=== PATIENT | female | born 1965 | race Two or more races ===

== ENCOUNTER 2024-11-24 21:48 | Inpatient (IN) | payer MEDICAID ==
[~2024-11-24] VITALS: Ht 162.6 cm; Wt 77.2 kg
[~2024-11-24 21:48] MED LIST: ACET-1304 PO; METF-372 PO
--- NOTE | 2024-11-24 22:41 | ED.PDOC ---
HPI Comments 59-year-old female, with a history of diabetes and hyperlipidemia, presents with complaint left-sided chest pain, that radiates to her left-neck and shoulder, and palpitations, today. Patient endorses on ongoing symptoms following unprovoked onset at 8:00 a.m., this morning. She reports no recent injuries, sick contact, significant history, or other relevant pertinent information at the time of initial contact. Patient denies having any shortness of breath, cough, nausea, vomiting, fever, or other associated symptoms or modifiers at this time. Chief Complaint: Chest Pain Time Seen by MD: 22:20 Primary Care Provider: VICENTE Reviewed Notes: Nurses Notes, Medications, Allergies Allergies: Coded Allergies: NO KNOWN ALLERGIES (Unverified , 04/27/23) Home Meds Active Scripts Acetaminophen (Tylenol Extra Strength) 500 Mg Tab, 500 MG PO Q6HPRN PRN, #20 TAB Prov:ERNA OSBORN MD 05/01/23 Reported Medications Metformin Hydrochloride (Metformin Hcl) 1,000 Mg Tab, 1 TAB PO BID 04/28/23 Information Source: Patient Mode of Arrival: Ambulatory Severity: Moderate Timing: Hours Duration: Since onset Prehospital treatment: None Past Medical History PAST MEDICAL HISTORY: DM, High Lipids Surgical History: Tonsillectomy BERRY PICKER History: Denies all BERRY PICKER Hx Family History Family History: Family hx of DM, Family hx of heart mendel Social History Smoker: Non-Smoker Alcohol: Denies ETOH Use Drugs: Denies Drug Use Lives In: Home Cardiovascular: reports: chest pain, palpitations Musculoskeletal: reports: neck pain (Left side), others (Left shoulder pain) All Other Systems: Reviewed and Negative (Negative unless otherwise stated abov e or in HPI) Physical Exam General Appearance: No Apparent Distress, Normal HEENT: Normal ENT Inspection, Pharynx Normal, TMs Normal Neck: Full Range of Motion, Non-Tender, Normal, Normal Inspection Respiratory: Chest Non-Tender, Lungs Clear, No Accessory Muscle Use, No Respiratory Distress, Normal Breath Sounds Cardiovascular: No Edema, No JVD, No Murmur, No Gallop, Normal Peripheral Pu lses, Tachycardia, Other (regular rhythm) Breast Exam: Deferred Gastrointestinal: No Organomegaly, Non Tender, No Pulsatile Mass, Normal Bowel Sounds, Soft Genitalia: Deferred Pelvic: Deferred Rectal: Deferred Extremities: No calf tenderness, Normal capillary refill, Normal inspection, Normal range of motion, Non-tender, No pedal edema Musculoskeletal : Location: Left Extremity Location: Chest Apperance: Normal, Tenderness (reproducible pain to left-pectoral muscle ) Neurologic: Alert, 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 Was a procedure done?: No CP Differential Dx Differential Diagnosis: Electrolyte Disorder, Sinus Tachycardia Differential Diagnosis: N/A Differential Diagnosis: Angina, Chest Wall Pain, Costochondritis, Esophageal reflux/spasm, Gastritis, Myocardial Infarction, Pericarditis X-Ray, Labs, Meds, VS Vital Signs Date Time Temp Pulse Resp B/P (MAP) Pulse Ox O2 Delivery O2 Flow Rate FiO2 11/24/24 22:55 113 11/24/24 21:55 126 11/24/24 21:52 98.0 126 15 155/98 (117) 94 Lab Test 11/24/24 22:58 11/24/24 21:59 Range/Units Troponin I High Sensitivity 43 *H 42 *H </=34 ng/L White Blood Count 9.1 4.4-10.8 10^3/uL Red Blood Count 5.12 4.0-5.20 10^6/uL Hemoglobin 14.1 12.2-16.2 g/dL Hematocrit 43.3 36.0-46.0 % Mean Corpuscular Volume 84.6 80.0-100.0 fL Mean Corpuscular Hemoglobin 27.6 L 28.0-32.0 pg Mean Corpuscular Hemoglobin Concent 32.6 32.0-36.0 g/dL Red Cell Distribution Width 14.3 11.8-14.3 % Platelet Count 339 140-450 10^3/uL Mean Platelet Volume 8.2 6.9-10.8 fL Neutrophils (%) (Auto) 49.0 37.0-80.0 % Lymphocytes (%) (Auto) 41.7 10.0-50.0 % Monocytes (%) (Auto) 6.5 0.0-12.0 % Eosinophils (%) (Auto) 2.1 0.0-7.0 % Basophils (%) (Auto) 0.7 0.0-2.0 % Neutrophils # (Auto) 4.5 1.6-8.6 10 ^3/uL Lymphocytes # (Auto) 3.8 0.4-5.4 10 ^3/uL Monocytes # (Auto) 0.6 0-1.3 10 ^3/uL Eosinophils # (Auto) 0.2 0-0.8 10 ^3/uL Basophils # (Auto) 0.1 0-0.2 10 ^3/uL Nucleated Red Blood Cells 0.1 % Sodium Level 138 136-145 mmol/L Potassium Level 3.6 3.5-5.1 mmol/L Chloride Level 102 98-107 mmol/L Carbon Dioxide Level 24 20-31 mmol/L Anion Gap 12 5-15 Blood Urea Nitrogen 17 9-23 mg/dL Creatinine 1.01 0.550-1.02 mg/dL Glomerular Filtration Rate Calc 64 >90 mL/min BUN/Creatinine Ratio 16.8 10.0-20.0 Serum Glucose 176 H 74-106 mg/dL Calcium Level 10.7 H 8.7-10.4 mg/dL Total Bilirubin 0.3 0.2-1.0 mg/dL Aspartate Amino Transferase (AST) 19 13-40 U/L Alanine Aminotransferase (ALT) 21 7-40 U/L Alkaline Phosphatase 101 46-116 U/L Total Protein 7.9 5.7-8.2 g/dL Albumin 4.7 3.2-4.8 g/dL X-Ray, Labs, Meds, VS Comment Patient will be admitted for chest pain rule out ACS Patient was elevated troponins trending up Recommend cardiology consult in the morning. Time of 1ST Reevaluation: 20:50 Reevaluation 1ST: Unchanged Patient Education/Counseling: Diagnosis, Treatment Family Education/Counseling: No Family Present Departure 1 Departure Time of Disposition: 23:39 Impression: Primary Impression: Angina pectoris Additional Impression: Elevated troponin Disposition: ADMITTED INPATIENT Condition: Stable Discharged With: Self Critical Care Note Critical Care Time?: No Stability Stability form required: No Heart Score Heart Score: Heart Score Response (Comments) Value History Highly Suspicious 2 EKG Normal 0 Age 45-64 1 Risk Factors No known risk factors 0 Troponin 1-2 x's Normal limit 1 Total 4 I personally scribed for ESTEFANIA JETT ([email or web address]) on 11/24/24 at 22:41. Electronically submitted by Kirk Mariee ([email or web address]). ESTEFANIA JETT [facility] Nov 24, 2024 22:41
--- NOTE | 2024-11-24 22:52 | DVH ---
CHEST RADIOGRAPH Indication: CP Technique: Single frontal view of the chest was obtained COMPARISON: XY CHEST PORTABLE on DOS: 04/27/23 FINDINGS: Lines and Tubes: None Lungs: Clear Pleura: No effusion. No pneumothorax. Cardiomediastinal contours: Unremarkable Bones: Unremarkable IMPRESSION: No abnormality.
[2024-11-24 23:06] LABS: Basophils # (auto) 0.1 10 ^3/uL (0-0.2); Basophils % (auto) 0.7 % (0.0-2.0); Eosinophils # (auto) 0.2 10 ^3/uL (0-0.8); Eosinophils % (auto) 2.1 % (0.0-7.0); Hematocrit 43.3 % (36.0-46.0); Hemoglobin 14.1 g/dL (12.2-16.2); Lymphocytes # (auto) 3.8 10 ^3/uL (0.4-5.4); Lymphocytes % (auto) 41.7 % (10.0-50.0); Mean Corpuscular Hemoglobin 27.6 pg (28.0-32.0); Mean Corpuscular Hgb Conc. 32.6 g/dL (32.0-36.0); Mean Corpuscular Volume 84.6 fL (80.0-100.0); Monocytes # (auto) 0.6 10 ^3/uL (0-1.3); Monocytes % (auto) 6.5 % (0.0-12.0); Neutrophils # (auto) 4.5 10 ^3/uL (1.6-8.6); Nucleated Red Blood Cells % 0.1 %; Platelet Count (auto) 339 10^3/uL (140-450); Red Blood Cells 5.12 10^6/uL (4.0-5.20); Red Cell Distribution Width 14.3 % (11.8-14.3); White Blood Cell 9.1 10^3/uL (4.4-10.8)
[2024-11-24 23:24] LABS: Alanine Aminotransferase 21 U/L (7-40); Alkaline Phosphatase 101 U/L (46-116); Anion Gap 12 (5-15); BUN/Creatinine Ratio 16.8 (10.0-20.0); Blood Urea Nitrogen 17 mg/dL (9-23); Carbon Dioxide 24 mmol/L (20-31); Chloride 102 mmol/L (98-107); Potassium 3.6 mmol/L (3.5-5.1); Sodium 138 mmol/L (136-145); Total Protein 7.9 g/dL (5.7-8.2)
[2024-11-24 23:25] LABS: Albumin 4.7 g/dL (3.2-4.8); Aspartate Aminotransferase 19 U/L (13-40)
[2024-11-24 23:28] LABS: Bilirubin, Total 0.3 mg/dL (0.2-1.0); Calcium 10.7 mg/dL (8.7-10.4); Glucose 176 mg/dL (74-106)
[2024-11-25] MEDS ORDERED: METOPROLOL TARTRATE 1MG/1ML-5ML VIAL IV PRN (00:30)
[2024-11-25] MEDS ORDERED: ONDANSETRON HCL 4 MG/2 ML VIAL IV PRN (00:30)
[2024-11-25] MEDS ORDERED: NITROGLYCERIN 0.4 MG SL TAB SL PRN (00:30)
[2024-11-25] MEDS ORDERED: DEXTROSE (50%) 50ML SYRG IV PRN (00:30)
[2024-11-25] MEDS ORDERED: MORPHINE SULFATE INJ 2 MG/ml SYRG IV PRN ×2 (00:30)
[2024-11-25] MEDS ORDERED: HYDROcodone-ACET 5/325MG TAB PO PRN (00:30)
[2024-11-25] MEDS ORDERED: LORazepam 0.5 MG TAB PO PRN (00:30)
[2024-11-25 00:54] LABS: Urine Bacteria None Seen /hpf (None Seen)
--- NOTE | 2024-11-25 01:02 | ECG ---
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
--- NOTE | 2024-11-25 01:02 | ECG ---
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
[2024-11-25 01:11] LABS: Urine Blood Negative /uL (Negative); Urine Clarity Clear (Clear); Urine Color Light-Yellow (Yellow); Urine Mucus FEW (None Seen); Urine Protein, UAD 1+ (Negative); Urine Specific Gravity 1.015 (1.001-1.035); Urine Squamous Epithelial Cell FEW /hpf (<5); Urine Urobilinogen Normal (Negative); Urine WBC 2 /HPF (0-5); Urine pH 5.5 (5.0-9.0)
[2024-11-25 01:34] LABS: Amphetamine Screen, Urine Neg (NEGATIVE); Barbiturate Scree,Urine Neg (NEGATIVE); Benzodiazephine Screen, Urine Neg (NEGATIVE); Cannabinoid Screen, Urine Neg (NEGATIVE); Cocaine Screen, Urine Neg (NEGATIVE); Opiate Scree,Urine Neg (NEGATIVE); Phencyclidine Screen, Urine Neg (NEGATIVE)
--- NOTE | 2024-11-25 02:55 | DVHHP2 ---
CAMI HARRIS LIBRARY SCIENCE INSTRUCTOR 11/25/24 0255: History of Present Illness Reason for Visit: Chest pain with shortness of breath History of Present Illness 59-year-old female with past medical history of DM presents with complaints of chest pain, palpitations, shortness for breath x1 day. Patient also endorses chest pain radiating to her back. On arrival to the emergency department patient was found to have sinus tachycardia 126. Troponin is also mildly el evated . This time patient denies any fevers, chills, dizziness, nausea, vomiting, diarrhea, leg swelling Endocrine: Diabetes Smoke: No ALCOHOL: none Drugs: None Lives: with Family Review of Systems Constitutional: No: Fever, Chills, Sweats, Weakness, Malaise, Other Eyes: No: Pain, Vision change, Conjunctivae inflammation, Eyelid inflammation, Other, Redness ENT: No: Ear pain, Ear discharge, Nose pain, Nose discharge, Nose congestion, Mouth pain, Mouth swelling, Throat pain, Throat swelling, Other Respiratory: Shortness of breath; No: Cough, Dry, SOB with excertion, Wheezing, Hemoptysis, Pleuritic Pain, Sputum, Wheezing, Other Cardiovascular: Chest Pain, Palpitations; No: Orthopnea, Paroxysmal Noc. Dyspnea, Edema, Lt Headedness, Other Gastrointestinal: No: Nausea, Vomiting, Abdominal Pain, Diarrhea, Constipation, Melena, Hematochezia, Other Genitourinary: No Dysuria, No Frequency, No Incontinence, No Hematuria, No Retention, No Other Musculoskeletal: No: other, neck pain, shoulder pain, arm pain, back pain, hand pain, leg pain, foot pain Skin: No: Rash, Lesions, Jaundice, Bruising, Other Neurological: No: Weakness, Numbness, Incoordination, Change in speech, Confusion, Seizures, Other Allergies: Coded Allergies: NO KNOWN ALLERGIES (Unverified , 04/27/23) Medications Current Medications Medications Dose Ordered Sig/Becky Route Start Time Stop Time Status Last Admin Dose Admin Acetaminophen 650 mg Q6HP PRN PO 11/25/24 00:30 Acetaminophen/ Hydrocodone Bitart 1 tab Q4HP PRN PO 11/25/24 00:30 Ondansetron HCl 4 mg Q4HP PRN IV 11/25/24 00:30 Morphine Sulfate 2 mg Q4HPRN PRN IV 11/25/24 00:30 Enoxaparin Sodium 40 mg DAILY SC 11/25/24 10:00 Nitroglycerin 0.4 mg Q5MINP PRN SL 11/25/24 00:30 Morphine Sulfate 2 mg Q30M PRN IV 11/25/24 00:30 Diagnostic Test (Pha) 1 strip ACHS 11/25/24 07:00 Insulin Human Regular ACHS SC 11/25/24 07:00 Dextrose 50 ml UD PRN IV 11/25/24 00:30 Lorazepam 0.5 mg BIDP PRN PO 11/25/24 00:30 Aspirin 81 mg DAILY PO 11/25/24 10:00 Metoprolol Tartrate 2.5 mg Q4HPRN PRN IV 11/25/24 00:30 Exam Vital Signs Vital Signs Date Time Temp Pulse Resp B/P (MAP) Pulse Ox O2 Delivery O2 Flow Rate FiO2 11/24/24 22:55 113 11/24/24 21:52 98.0 15 155/98 (117) 94 General Appearance: Alert, Oriented X3, Cooperative, mild distress HEENT: Atraumatic, PERRLA, EOMI Respiratory: Clear to auscultation, Normal air movement Cardiovascular: Normal S1, Normal S2, Other (Tachycardia) Abdominal: Normal bowel sounds, Soft, No tenderness Extremities: No clubbing, No cyanosis, No edema Skin: No rashes, No breakdown Neuro: Normal gait, Normal speech, Strength at 5/5 X4 ext Psych/Mental Status: Mental status NL, Mood NL Labs/Xrays Labs Test 11/25/24 00:48 11/25/24 00:40 11/24/24 21:59 Range/Units Troponin I High Sensitivity 42 *H </=34 ng/L Urine Color Light-yellow Yellow Urine Clarity Clear Clear Urine pH 5.5 5.0-9.0 Urine Specific Wilson 1.015 1.001-1.035 Urine Protein 1+ H Negative Urine Ketones Negative Negative Urine Blood Negative Negative /uL Urine Nitrite Negative Negative Urine Bilirubin Negative Negative Urine Urobilinogen Normal Negative mg/dL Urine Leukocyte Esterase Negative Negative /uL Urine RBC <1 0 - 4 /hpf Urine Microscopic WBC 2 0-5 /HPF Urine Squamous Epithelial Cells Few <5 /hpf Urine Bacteria None seen None Seen /hpf Urine Mucus Few None Seen Urine Glucose Trace Normal mg/dL Urine Opiates Screen Neg NEGATIVE Urine Fentanyl Screen Neg NEGATIVE Urine Barbiturates Screen Neg NEGATIVE Urine Phencyclidine Screen Neg NEGATIVE Urine Amphetamines Screen Neg NEGATIVE Urine Benzodiazepines Screen Neg NEGATIVE Urine Cocaine Screen Neg NEGATIVE Urine Cannabinoids Screen Neg NEGATIVE White Blood Count 9.1 4.4-10.8 10^3/uL Red Blood Count 5.12 4.0-5.20 10^6/uL Hemoglobin 14.1 12.2-16.2 g/dL Hematocrit 43.3 36.0-46.0 % Mean Corpuscular Volume 84.6 80.0-100.0 fL Mean Corpuscular Hemoglobin 27.6 L 28.0-32.0 pg Mean Corpuscular Hemoglobin Concent 32.6 32.0-36.0 g/dL Red Cell Distribution Width 14.3 11.8-14.3 % Platelet Count 339 140-450 10^3/uL Mean Platelet Volume 8.2 6.9-10.8 fL Neutrophils (%) (Auto) 49.0 37.0-80.0 % Lymphocytes (%) (Auto) 41.7 10.0-50.0 % Monocytes (%) (Auto) 6.5 0.0-12.0 % Eosinophils (%) (Auto) 2.1 0.0-7.0 % Basophils (%) (Auto) 0.7 0.0-2.0 % Neutrophils # (Auto) 4.5 1.6-8.6 10 ^3/uL Lymphocytes # (Auto) 3.8 0.4-5.4 10 ^3/uL Monocytes # (Auto) 0.6 0-1.3 10 ^3/uL Eosinophils # (Auto) 0.2 0-0.8 10 ^3/uL Basophils # (Auto) 0.1 0-0.2 10 ^3/uL Nucleated Red Blood Cells 0.1 % D-Dimer, Quantitative 0.37 0.0-0.49 mg/L FEU Sodium Level 138 136-145 mmol/L Potassium Level 3.6 3.5-5.1 mmol/L Chloride Level 102 98-107 mmol/L Carbon Dioxide Level 24 20-31 mmol/L Anion Gap 12 5-15 Blood Urea Nitrogen 17 9-23 mg/dL Creatinine 1.01 0.550-1.02 mg/dL Glomerular Filtration Rate Calc 64 >90 mL/min BUN/Creatinine Ratio 16.8 10.0-20.0 Serum Glucose 176 H 74-106 mg/dL Calcium Level 10.7 H 8.7-10.4 mg/dL Total Bilirubin 0.3 0.2-1.0 mg/dL Aspartate Amino Transferase (AST) 19 13-40 U/L Alanine Aminotransferase (ALT) 21 7-40 U/L Alkaline Phosphatase 101 46-116 U/L Total Protein 7.9 5.7-8.2 g/dL Albumin 4.7 3.2-4.8 g/dL Assessment/Plan Assessment/Plan Elevated troponin Sinus tachycardia DM with elevated blood glucose Plan Admit to telemetry Cardiology consult. Echocardiogram. ACS protocol: beta kiarra, ASA, statin. Blood glucose check ACHS with regular insulin sliding scale coverage ADA / cardiac diet GI ppx protonix/ DVT ppx Lovenox Plan discussed with: Patient My Orders Orders - CAMI HARRIS NP Procedure Category Date Status Time Admit ADMIT 11/25/24 Transmitted 00:19 Code Status CODE 11/25/24 Transmitted 00:19 Vital Signs TRAE 11/25/24 In Process 00:19 Review Orders With TRAE 11/25/24 In Process Adm. 00:19 Encourage Activity As TRAE 11/25/24 In Process Tolerate 00:19 Consistent DIET 11/25/24 Transmitted Carb(Ccho)Diabetes Breakfast Oxygen By Face Mask RT 11/25/24 Transmitted 00:19 Acetaminophen Tablet PHA 11/25/24 In Process (Tylenol Tablet) 00:30 Notify Of Changes TRAE 11/25/24 In Process From Base 00:19 Advance Directive TRAE 11/25/24 In Process 00:19 Echo 2d Mode Cardiac US 11/25/24 Logged DOP 00:19 Basic Metabolic Panel LAB 11/25/24 Logged 05:00 Basic Metabolic Panel LAB 11/26/24 Verified 05:00 Basic Metabolic Panel LAB 11/27/24 Verified 05:00 Basic Metabolic Panel LAB 11/28/24 Verified 05:00 Complete Blood Count LAB 11/25/24 Logged 05:00 Complete Blood Count LAB 11/26/24 Verified 05:00 Complete Blood Count LAB 11/27/24 Verified 05:00 Complete Blood Count LAB 11/28/24 Verified 05:00 Complete Blood Count LAB 11/29/24 Verified 05:00 Patient Condition ORDERS 11/25/24 Transmitted 00:19 Allergies TRAE 11/25/24 In Process 00:19 Hydrocodone-Acet PHA 11/25/24 In Process 5/325mg Tab ([place] 00:30 Ondansetron Hcl PHA 11/25/24 In Process (Zofran) 00:30 Morphine Sulfate PHA 11/25/24 In Process Injection 00:30 Enoxaparin Sodium PHA 11/25/24 In Process (Lovenox) 10:00 Sequential TRAE 11/25/24 In Process Compression Device Nitroglycerin PHA 11/25/24 In Process Sublingual (Ntrostat 00:30 Morphine Sulfate PHA 11/25/24 In Process Injection 00:30 Stat Ekg For Chest TRAE 11/25/24 In Process Pain 00:19 Notify Md Of Changes TRAE 11/25/24 In Process From Base 00:19 Lie Detector Operator For TRAE 11/25/24 In Process 24 Hours 00:19 Emergency Dysrhythmia TRAE 11/25/24 In Process Protocol 00:19 Rhythm Strips Once TRAE 11/25/24 In Process Every Shift 00:19 Oxygen By Nasal RT 11/25/24 Transmitted Cannula 00:19 Glucose Blood PHA 11/25/24 In Process (Accu-Chek Comfort 07:00 Insulin R (Human) PHA 11/25/24 In Process (Insulin R) 07:00 Dextrose 50% Syringe PHA 11/25/24 In Process 00:30 Lorazepam Tablet PHA 11/25/24 In Process (Ativan Tablet) 00:30 * Cardiology Consult CONS 11/25/24 Transmitted 00:19 Troponin-I Hs LAB 11/25/24 Logged 04:00 Troponin-I Hs LAB 11/25/24 Logged 10:00 Aspirin Tablet PHA 11/25/24 In Process 10:00 Metoprolol Inj PHA 11/25/24 In Process (Lopressor) 00:30 Thyroid Stimulating LAB 11/25/24 Logged Hormone 04:00 Free T4 (Free LAB 11/25/24 Logged Thyroxine) 04:00 Date of Service: Nov 25, 2024 Billing Provider: JANUARY ASHFORD MD Common Visit Codes: NOT BILLABLE JANUARY ASHFORD MD 11/25/24 1734: Review of Systems Allergies: Coded Allergies: NO KNOWN ALLERGIES (Unverified , 04/27/23) Additional Comments Additional Comments Additional Comments 59-year-old female with a known history of diabetes mellitus type 2, currently on metformin, presented to the hospital with chest pain and shortness of breaths found to have 1. Chest pain with elevated troponin rule out acute SC 2. Diabetes mellitus type 2 3. Sinus tachycardia -2D echo, cardiology consultation, stress test CAMI HARRIS NP Nov 25, 2024 02:55 JANUARY ASHFORD MD Nov 25, 2024 17:34
[2024-11-25] MEDS: ACETAMINOPHEN 325 MG TAB PO PRN (04:18)
[2024-11-25 04:49] LABS: Basophils # (auto) 0.1 10 ^3/uL (0-0.2); Basophils % (auto) 0.9 % (0.0-2.0); Eosinophils # (auto) 0.1 10 ^3/uL (0-0.8); Eosinophils % (auto) 2.1 % (0.0-7.0); Hematocrit 39.2 % (36.0-46.0); Lymphocytes # (auto) 2.8 10 ^3/uL (0.4-5.4); Mean Corpuscular Hemoglobin 27.9 pg (28.0-32.0); Mean Corpuscular Hgb Conc. 33.2 g/dL (32.0-36.0); Mean Corpuscular Volume 84.2 fL (80.0-100.0); Monocytes # (auto) 0.4 10 ^3/uL (0-1.3); Neutrophils # (auto) 3.3 10 ^3/uL (1.6-8.6); Nucleated Red Blood Cells % 0.1 %; Platelet Count (auto) 305 10^3/uL (140-450); Red Blood Cells 4.65 10^6/uL (4.0-5.20); Red Cell Distribution Width 14.5 % (11.8-14.3); White Blood Cell 6.6 10^3/uL (4.4-10.8)
[2024-11-25 04:58] LABS: Chloride 105 mmol/L (98-107); Potassium 3.7 mmol/L (3.5-5.1); Sodium 139 mmol/L (136-145)
[2024-11-25 04:59] LABS: Anion Gap 10 (5-15); Calcium 10.2 mg/dL (8.7-10.4); Carbon Dioxide 24 mmol/L (20-31)
[2024-11-25 05:04] LABS: Blood Urea Nitrogen 17 mg/dL (9-23)
[2024-11-25 05:06] LABS: Glucose 155 mg/dL (74-106)
[2024-11-25] MEDS: ASPirin 81 mg TAB PO SCH (07:16)
[2024-11-25] MEDS: ACCU-CHEK COMFORT CURVE STRIP VI SCH (07:17)
[2024-11-25] MEDS: InsuLIN REG 1unit/0.01ml Soln (100units/ml) SC SCH (07:17)
[2024-11-25] MEDS: ENOXAPARIN SOD 40 MG/0.4 ML SYRINGE SC SCH (07:17)
[2024-11-25 07:20] VITALS: PULSE 84; RESP 16; O2SAT 95
[2024-11-25 10:27] VITALS: BP 129/84; PULSE 98; RESP 16; TEMP 98.7; O2SAT 97
--- NOTE | 2024-11-25 14:23 | DVHINCON2 ---
[facility] 11/25/24 1423: Date Seen: Nov 25, 2024 Referring Physician ESTHER Hudson Reason for Consultation Chest pain History of Present Illness This is a 59-year-old female who presented to the emergency room with a chief complaint of chest pain on 11/24/2024. Describes her chest pain as left-sided, non provoked, intermittent, radiating to her left arm and neck area, pressure- like, associated with palpitations and some dizziness. Per patient, she took an antacid with no relief of symptoms. She underwent multiple 12 lead electrocardiogram revealing a sinus tachycardia rhythm without evident ST segment changes. Serial troponin levels have remained flat in the 40s ng/L. Per patient, she had experienced similar episodes in the past whenever she has a panic attack this time seems to be worse than normal. Significant medical history includes udi-yhfmhck-gkenrwznd diabetes mellitus and anxiety. Past Medical History Past medical history reviewed. No other significant than mentioned above. Past Surgical History Cholecystectomy Family History: Diabetes mellitus G8 MOTHER, G8 FATHER, Family History Family history reviewed. Significant for father with TIA. Social History Denies the use of illicit drugs, alcohol, or tobacco use. Allergies: Coded Allergies: NO KNOWN ALLERGIES (Unverified , 04/27/23) Home Meds Active Scripts Acetaminophen (Tylenol Extra Strength) 500 Mg Tab, 500 MG PO Q6HPRN PRN, #20 TAB Prov:ERNA OSBORN MD 05/01/23 Reported Medications Metformin Hydrochloride (Metformin Hcl) 1,000 Mg Tab, 1 TAB PO BID 04/28/23 Home Meds Home medications reviewed. Current Medications Current Medications Medications (Trade) Dose Ordered Sig/Becky Route PRN Reason Start Time Stop Time Status Last Admin Acetaminophen (Tylenol Tablet) 650 mg Q6HP PRN PO PAIN SCALE 1-3 OR TEMP>100.4 11/25/24 00:30 11/25/24 04:18 Acetaminophen/ Hydrocodone Bitart (Idamay 5/325MG Tab) 1 tab Q4HP PRN PO MODERATE PAIN (4-6 PAIN SCALE) 11/25/24 00:30 Ondansetron HCl (Zofran) 4 mg Q4HP PRN IV NAUSEA / VOMITING 11/25/24 00:30 Morphine Sulfate 2 mg Q4HPRN PRN IV SEVERE PAIN (7-10 PAIN SCALE) 11/25/24 00:30 Enoxaparin Sodium (Lovenox) 40 mg DAILY SC 11/25/24 10:00 11/25/24 07:17 Nitroglycerin (Ntrostat Sublingual) 0.4 mg Q5MINP PRN SL FOR CHEST PAIN 11/25/24 00:30 Morphine Sulfate 2 mg Q30M PRN IV FOR CHEST PAIN 11/25/24 00:30 Diagnostic Test (Pha) (Accu-Chek Comfort Curve T) 1 strip ACHS 11/25/24 07:00 11/25/24 11:42 Insulin Human Regular (InsuLIN R) ACHS SC 11/25/24 07:00 11/25/24 11:48 Dextrose 50 ml UD PRN IV Blood Sugar LESS THAN 60 11/25/24 00:30 Lorazepam (Ativan Tablet) 0.5 mg BIDP PRN PO anxiety 11/25/24 00:30 Aspirin 81 mg DAILY PO 11/25/24 10:00 11/25/24 07:16 Metoprolol Tartrate (Lopressor) 2.5 mg Q4HPRN PRN IV HEART RATE GREATER THAN 140 11/25/24 00:30 Review of Systems Constitutional: No symptom reported Ears, Nose, & Throat: No symptom reported Eyes: No symptom reported Neurological: Dizziness Pulmonary/Respiratory: No symptom reported Cardiovascular: Chest pain, palpitations Gastrointestinal: No symptom reported Genitourinary: No symptom reported Musculoskeletal: No symptom reported Skin: No symptom reported Psychiatric: No symptom reported Endocrine: No symptom reported Hemotologic/Lymphatic: No symptom reported Vital Signs Vital Signs Date Time Temp Pulse Resp B/P (MAP) Pulse Ox O2 Delivery O2 Flow Rate FiO2 11/25/24 10:27 98.7 98 16 129/84 (99) 97 98.7 11/25/24 07:20 Room Air* 0 21 Physical Exam General Appearance: Cooperative. Well developed. Well nourished. In no acute distress Head Exam: Normal inspection Neck Exam: Normal inspection. Non-tender. Normal alignment Pulmonary/Respiratory: Chest non-tender. Clear bilateral breath sounds Cardiovascular/Chest: Regular rate and rhythm. S1, S2. NSR. No murmurs. No JVD. Peripheral Pulses: 2+ Radial (R). 2+ Radial (L). 2+ Pedal (R). 2+ Pedal (L) Abdominal Exam: Normal bowel sounds. Soft. Nontender. No hepatospenomegaly. No masses Ankle Exam: Negative ankle edema Lower extremities: Negative lower extremity edema Neuro/Mental Status: A&O x4. Coherent Thoughts/Psych: Normal thought pattern. Mild anxiety present Appearance: In no acute distress Skin Exam: Normal inspection. Normal color. Warm. Dry Labs/Diagnostic Data Labs Test 11/25/24 11:41 11/25/24 10:00 11/25/24 04:38 11/25/24 00:40 Range/Units POC Glucose 188 H 70-106 mg/dl Troponin I High Sensitivity 42 *H </=34 ng/L White Blood Count 6.6 # 4.4-10.8 10^3/uL Red Blood Count 4.65 4.0-5.20 10^6/uL Hemoglobin 13.0 12.2-16.2 g/dL Hematocrit 39.2 36.0-46.0 % Mean Corpuscular Volume 84.2 80.0-100.0 fL Mean Corpuscular Hemoglobin 27.9 L 28.0-32.0 pg Mean Corpuscular Hemoglobin Concent 33.2 32.0-36.0 g/dL Red Cell Distribution Width 14.5 H 11.8-14.3 % Platelet Count 305 140-450 10^3/uL Mean Platelet Volume 7.5 6.9-10.8 fL Neutrophils (%) (Auto) 49.0 37.0-80.0 % Lymphocytes (%) (Auto) 42.0 10.0-50.0 % Monocytes (%) (Auto) 6.0 0.0-12.0 % Eosinophils (%) (Auto) 2.1 0.0-7.0 % Basophils (%) (Auto) 0.9 0.0-2.0 % Neutrophils # (Auto) 3.3 1.6-8.6 10 ^3/uL Lymphocytes # (Auto) 2.8 0.4-5.4 10 ^3/uL Monocytes # (Auto) 0.4 0-1.3 10 ^3/uL Eosinophils # (Auto) 0.1 0-0.8 10 ^3/uL Basophils # (Auto) 0.1 0-0.2 10 ^3/uL Nucleated Red Blood Cells 0.1 % Sodium Level 139 136-145 mmol/L Potassium Level 3.7 3.5-5.1 mmol/L Chloride Level 105 98-107 mmol/L Carbon Dioxide Level 24 20-31 mmol/L Anion Gap 10 5-15 Blood Urea Nitrogen 17 9-23 mg/dL Creatinine 0.85 0.550-1.02 mg/dL Glomerular Filtration Rate Calc 79 >90 mL/min BUN/Creatinine Ratio 20.0 10.0-20.0 Serum Glucose 155 H 74-106 mg/dL Calcium Level 10.2 8.7-10.4 mg/dL Thyroid Stimulating Hormone (TSH) 3.64 0.55-4.78 uIU/mL Free Thyroxine (T4) Calculated 0.97 0.89-1.76 ng/dL Urine Color Light-yellow Yellow Urine Clarity Clear Clear Urine pH 5.5 5.0-9.0 Urine Specific [place] 1.015 1.001-1.035 Urine Protein 1+ H Negative Urine Ketones Negative Negative Urine Blood Negative Negative /uL Urine Nitrite Negative Negative Urine Bilirubin Negative Negative Urine Urobilinogen Normal Negative mg/dL Urine Leukocyte Esterase Negative Negative /uL Urine RBC <1 0 - 4 /hpf Urine Microscopic WBC 2 0-5 /HPF Urine Squamous Epithelial Cells Few <5 /hpf Urine Bacteria None seen None Seen /hpf Urine Mucus Few None Seen Urine Glucose Trace Normal mg/dL Urine Opiates Screen Neg NEGATIVE Urine Fentanyl Screen Neg NEGATIVE Urine Barbiturates Screen Neg NEGATIVE Urine Phencyclidine Screen Neg NEGATIVE Urine Amphetamines Screen Neg NEGATIVE Urine Benzodiazepines Screen Neg NEGATIVE Urine Cocaine Screen Neg NEGATIVE Urine Cannabinoids Screen Neg NEGATIVE Test 11/24/24 21:59 Range/Units D-Dimer, Quantitative 0.37 0.0-0.49 mg/L FEU Total Bilirubin 0.3 0.2-1.0 mg/dL Aspartate Amino Transferase (AST) 19 13-40 U/L Alanine Aminotransferase (ALT) 21 7-40 U/L Alkaline Phosphatase 101 46-116 U/L Total Protein 7.9 5.7-8.2 g/dL Albumin 4.7 3.2-4.8 g/dL Assessment Non ST-elevation myocardial infarction Chest pain rule out coronary artery disease Rule out structural heart disease including MVP Gze-urpwyde-ofrppcduc diabetes mellitus Anxiety with a hx of panic attacks Negative d-dimer level Plan/Recommendation (Dr. Kam) Case discussed and patient examined at bedside by Dr. Kam. The patient with chest pain, risk factors, and elevated troponin levels will undergo a coronary angiogram with cardiac catheterization at first available. Risk and benefits of the procedure were discussed with the patient and at bedside. All questions answered. In the meantime, obtain a transthoracic echocardiogram to rule out structural heart disease. Continue single-antiplatelet therapy. Monitor ECG changes closely and notify accordingly. Continue chest pain protocol and therapeutic Lovenox, hold day of procedure. Lipid panel, HgbA1C, and Mg levels pending at this time. Thank you for allowing us to participate in this patient's care. Please call if you have any questions or concerns. This medical document was created using an electronic medical record system with voice recognition software and computerized dictation system. Although this document has been carefully reviewed, there might still be some phonetic and typographical errors. Occasional wrong-word or ``sound-alike substitutions may have occurred due to the inherent limitations of voice recognition software. These areas are purely typographical due to imperfections of the software programs and do not reflect any compromise in the patient's medical care. Pl ease read the chart carefully and recognize, using context, where these substitutions have occurred. Plan discussed with: Patient, Other NYHA Physical activity limitations: NA Date of Service: Nov 25, 2024 Billing Provider: [facility] Cardiology Common Codes: 71489-EUDMOOW INP/OBS CARE (High) AMPARO KAM MD 11/26/24 0529: Family History: Diabetes mellitus G8 MOTHER, G8 FATHER, Allergies: Coded Allergies: NO KNOWN ALLERGIES (Unverified , 04/27/23) Home Meds Active Scripts Acetaminophen (Tylenol Extra Strength) 500 Mg Tab, 500 MG PO Q6HPRN PRN, #20 TAB Prov:ERNA OSBORN MD 05/01/23 Reported Medications Metformin Hydrochloride (Metformin Hcl) 1,000 Mg Tab, 1 TAB PO BID 04/28/23 Plan/Recommendation 59 year-old female, with a moderately controlled diabetes and very remote history of panic attacks no episodes in the past two years. Presenting with two episodes of lightheadedness and discomfort, generalized, followed by distinct chest pressure associated with left arm numbness with radiation to the jaw and heart pounding. she denies a history of experiencing this previously. EKG with nonspecific changes, troponin elevated, but not dynamic. D dimer negative. Tachycardia at rest. no dehydration. I discussed with the patient and her family members the atypical presentation, her risk factors for CAD, including diabetes and dyslipidemia she would prefer a conclusive answer and she is on the lower risk for angiogram related complications. I have discussed this case with the paper bundler who will accept the patient for left heart catheterization tomorrow. Echocardiogram. high dose statin aspirin lovenox will treat as ACS: Unstable Angina/NSTEMI further recommendations per clinical progression Plan discussed with: Patient, Spouse Date of Service: Nov 25, 2024 Billing Provider: AMPARO KAM MD Cardiology Common Codes: 80680-XUBVRQI INP/OBS CARE (High) [facility] Nov 25, 2024 14:23 AMPARO KAM MD Nov 26, 2024 05:29
[2024-11-25 14:31] LABS: Magnesium 1.8 mg/dL (1.6-2.6)
[2024-11-25] MEDS ORDERED: ENOXAPARIN SOD 80 MG/0.8ML SYRINGE SC SCH ×2 (22:00)
--- NOTE | 2024-11-26 12:18 | DVHSR ---
APPROVED REPORT EXAM: Two-dimensional and M-mode echocardiogram with Doppler and color Doppler. Blood Pressure: 111/70 mmHg INDICATION Elevated Trops RISK FACTORS Height: 64, Weight: 170 DIMENSIONS LVDd4.3 (3.8-5.7cm)LA (2D)3.4 (1.9-4.0cm)Aortic Root2.9 (2.0-3.7cm) LVDs3.4 (2.5-4.0cm)LA (MM) (1.9-4.0cm)Aortic Cusp Exc1.6 (1.5-2.0cm) EF (%) 43.0 (55-70%)Rt. Atrium3.6 (1.9-4.0cm)Asc. Aorta cm IVSd1.0 (0.7-1.1cm)RV (D) (1.8-2.4cm) PWd1.1 (0.7-1.1cm) Mitral Valve MitralMitral Stenosis E wave1.04m/sMV Mean GR.2mmHg A wavem/sMV Peak GR.4mmHg E/A ratio0.02D MVAcm2 Aortic Valve Aortic ValveAortic Stenosis V11.08m/Robert Mean GR.4mmHg V21.38m/Robert Peak GR.8mmHg LVOT Diameter1.9 (1.8-2.4cm)Doppler AVA2.22cm2 Pulmonic Valve V20.83m/s Tricuspid Valve TR Velocity1.85m/s [id number] Conclusion Sinus rhythm. Normal chamber sizes. Valves appear to be structurally normal. Left ventricular function is diminished. EF is about 40% with underlying global hypokinesis. Dopplers unremarkable. No pericardial effusion masses or vegetations discernible.
== END 2024-11-25 20:07 | disposition left against medical advice (07) | DRG 190 ==
LOC: ER 21:48 → OVERFLOW 11-25 00:19
PROVIDERS: ADMIT Nurse Practitioner Family; ATTEND Nurse Practitioner Family
DX: I21.4 Non-ST elevation (NSTEMI) myocardial infarction (principal); E11.65 Type 2 diabetes mellitus with hyperglycemia; I25.119 Atherosclerotic heart disease of native coronary artery with unspecified angina pectoris; R00.0 Tachycardia, unspecified; F41.0 Panic disorder [episodic paroxysmal anxiety]; Z53.29 Procedure and treatment not carried out because of patient's decision for other reasons; E78.5 Hyperlipidemia, unspecified; Z79.1 Long term (current) use of non-steroidal anti-inflammatories (NSAID); Z79.899 Other long term (current) drug therapy; Z79.84 Long term (current) use of oral hypoglycemic drugs; Z83.3 Family history of diabetes mellitus; Z79.891 Long term (current) use of opiate analgesic; Z79.4 Long term (current) use of insulin; Z79.82 Long term (current) use of aspirin; Z90.49 Acquired absence of other specified parts of digestive tract
CPT/HCPCS: 36415; 71045; 80048; 80053; 80061; 80307; 81001; 82962; 83036; 83735; 84439; 84443; 84484; 85025; 85379; 93005; 93306; G0378; J1815